=== PATIENT | female | born 1970 | race African-American/Black ===

== ENCOUNTER 2016-11-22 12:41 | Emergency (ER) | payer OTHER ==
[~2016-11-22] VITALS: Ht 190.5 cm; Wt 111.4 kg
[~2016-11-22 12:41] MED LIST: OMEP20 PO
[2016-11-22 13:41] LABS: EOSINOPHILS # (AUTO) 2.66 K/uL (0.00-0.70); HEMATOCRIT 34.3 % (36-46); HEMOGLOBIN 10.5 g/dL (12.0-16.0); LYMPHOCYTES # (AUTO) 1.3 K/uL (1.0-4.8); LYMPHOCYTES % (AUTO) 22.3 % (22.0-44.0); MEAN CORPUSCULAR HEMOGLOBIN 19.4 pg (26.0-34.0); MEAN CORPUSCULAR HGB CONC 30.7 G/dL (31.0-37.0); MEAN CORPUSCULAR VOLUME 63 fL (80-100); MONOCYTES # (AUTO) 0.1 K/uL (0.1-1.0); MONOCYTES % (AUTO) 1.3 % (2.0-9.0); NEUTROPHILS # (AUTO) 1.9 K/uL (1.8-7.7); NEUTROPHILS % (AUTO) 31.6 % (40.0-70.0); PLATELET COUNT (AUTO) 219 K/uL (150-450); RED BLOOD CELL COUNT(AUTO) 5.41 MIL/uL (4.00-5.20); RED CELL DISTRIBUTION WIDTH 22.1 % (11.5-14.5); WHITE BLOOD COUNT (AUTO) 5.9 K/uL (4.5-11.0)
[2016-11-22 13:43] LABS: EOSINOPHILS % (AUTO) 44.85 % (1.0-6.0)
[2016-11-22 13:50] LABS: ANION GAP 10 mmol/L (8-16); CALCIUM, TOTAL 9.4 mg/dL (8.8-10.5); CARBON DIOXIDE 29 mmol/L (22-29); CHLORIDE 102 mmol/L (98-107); GLOMERULAR FILTR. RATE CALC > 60 mL/min (>60); POTASSIUM 3.5 mmol/L (3.5-5.1); SODIUM SERUM 141 mmol/L (136-145); UREA NITROGEN, BLOOD 10 mg/dL (7-18)
[2016-11-22 13:56] LABS: ALANINE AMINOTRANSFERASE 869 U/L (12-78); ALBUMIN 3.3 g/dL (3.4-5.0); ASPARTATE AMINOTRANSFERASE 698 U/L (15-37); BILIRUBIN,TOTAL 1.4 mg/dL (0.1-1.0)
[2016-11-22 14:04] LABS: RBC MORPHOLOGY COMMENT ABNORMAL RBC MORPH
[2016-11-22] MEDS ORDERED: SODIUM CHLORIDE 0.9% 1,000 ML IV ONE (14:15)
[2016-11-22] MEDS ORDERED: ONDANSETRON HCL 4 MG/2 ML VIAL IVP ONE (14:15)
[2016-11-22] MEDS ORDERED: DONNATAL/LIDOCAINE/MAALOX 55 ML BOTTLE PO ONE (14:15)
[2016-11-22 15:25] VITALS: BP 145/92
[2016-11-22] MEDS ORDERED: PANTOPRAZOLE SODIUM 40 MG/VIAL IVP ONE (15:45)
[2016-11-23 04:07] LABS: HEPATITIS Bs ANTIGEN SCREEN P Negative (Negative); HEPATITIS C AB SCREEN <0.1 s/co ratio (0.0-0.9)
== END 2016-11-22 16:59 | disposition home or self-care (01) ==
LOC: EMS 12:42
DX: K21.9 Gastro-esophageal reflux disease without esophagitis (principal); R74.0 Nonspecific elevation of levels of transaminase and lactic acid dehydrogenase [LDH]; F17.210 Nicotine dependence, cigarettes, uncomplicated; Z88.0 Allergy status to penicillin
CPT/HCPCS: 36415; 76705; 80053; 80074; 83690; 84484; 84703; 85025; 93005; 96374; 96375; 99285; C9113; J2405; J7030; Z7610

== ENCOUNTER 2017-01-21 17:04 | Emergency (ER) | payer OTHER ==
[~2017-01-21] VITALS: Ht 190.5 cm; Wt 109.0 kg
[2017-01-21 17:05] VITALS: BP 131/98
== END 2017-01-21 19:41 | disposition left against medical advice (07) ==
LOC: EMS 17:07
DX: R10.10 Upper abdominal pain, unspecified (principal); R11.2 Nausea with vomiting, unspecified; R19.7 Diarrhea, unspecified; K21.9 Gastro-esophageal reflux disease without esophagitis; Z53.21 Procedure and treatment not carried out due to patient leaving prior to being seen by health care provider